=== PATIENT | male | born 1975 | race Caucasian/White ===

== ENCOUNTER 2021-08-25 09:24 | Emergency (ER) | payer MEDICARE, OTHER | END 2021-08-25 10:10 | disposition left against medical advice (07) | LOC: ER1 09:24 | DX: M79.671 Pain in right foot (principal); M79.672 Pain in left foot; E11.9 Type 2 diabetes mellitus without complications; J44.9 Chronic obstructive pulmonary disease, unspecified; Z79.4 Long term (current) use of insulin; F17.210 Nicotine dependence, cigarettes, uncomplicated | CPT/HCPCS: 99282 ==